=== PATIENT | female | born 1950 | race Caucasian/White ===

== ENCOUNTER 2016-07-22 15:26 | Inpatient (IN) | payer MEDICARE ==
[~2016-07-22] VITALS: Ht 167.6 cm; Wt 50.9 kg
[2016-07-22] MEDS ORDERED: SODIUM CHLORIDE FLUSH 10ML SYR IVF ONE ×2 (16:00→18:30)
[2016-07-22 16:32] LABS: ASPARTATE AMINO TRANSFERASE 19 U/L (15-37); BLOOD UREA NITROGEN 13 mg/dL (7-18)
[2016-07-22 16:59] LABS: DIFF TOTAL CELLS COUNTED 100 CELL DIFF
[2016-07-22 17:03] LABS: VERIFY COUNTS? YES
[2016-07-22] MEDS ORDERED: ONDANSETRON 2MG/ML, 2ML IVPush ONE (17:30)
[2016-07-22] MEDS ORDERED: HYDROmorphone 1 MG/ML, 1ML IVPush PRN (17:30)
[2016-07-22] MEDS ORDERED: SODIUM CHLORIDE 0.9% 1,000ML IVBOLUS ONE (17:30)
[2016-07-22] MEDS ORDERED: NS + 40MEQ KCL 1,000 ML IV ONE ×2 (17:40→18:10)
[2016-07-22] MEDS ORDERED: ONDANSETRON 2MG/ML, 2ML ONE ×2 (17:47→18:54)
[2016-07-22] MEDS ORDERED: HYDROmorphone 1 MG/ML, 1ML ONE (17:48)
[2016-07-22 17:56] LABS: PATH.CAST-FLAG NOT PRESENT; SPERM-FLAG NOT PRESENT; SRC-FLAG NOT PRESENT; XTAL-FLAG NOT PRESENT; YLC-FLAG NOT PRESENT
[2016-07-22] MEDS ORDERED: CEFTRIAXONE PMX 2GM/50ML 50 ML ONE (18:11)
[2016-07-22] MEDS ORDERED: FENTANYL PF 250 MCG/5ML ONE (18:25)
[2016-07-22] MEDS ORDERED: MIDAZOLAM 1 MG/ML, 2ML ONE (18:25)
[2016-07-22] MEDS ORDERED: CEFTRIAXONE PMX 2GM/50ML 50 ML IV ONE (18:30)
[2016-07-22] MEDS ORDERED: ROCURONIUM 10 MG/ML ONE (18:54)
[2016-07-22] MEDS ORDERED: SUCCINYLCHOLINE 20 MG/ML, 10ML ONE (18:54)
[2016-07-22] MEDS ORDERED: DEXAMETHASONE 4 MG/ML, 1ML ONE (18:54)
[2016-07-22] MEDS ORDERED: PROPOFOL 10 MG/ML, 20ML ONE (18:54)
[2016-07-22] MEDS ORDERED: OMNIPAQUE 350 MG/ML, 50 ML BOTTLE IV ONE (19:00)
[2016-07-22] MEDS ORDERED: ACETAMINOPHEN 325 MG TABLET PO PRN ×2 (19:30→23:00)
[2016-07-22] MEDS ORDERED: OXYcodone 5 MG/5 ML ORAL.SOL UDC PO PRN (19:30)
[2016-07-22] MEDS ORDERED: METOCLOPRAMIDE 5 MG/ML, 2ML IV PRN (19:30)
[2016-07-22] MEDS ORDERED: LABETALOL 5MG/ML, 20ML IV PRN (19:30)
[2016-07-22] MEDS ORDERED: hydrALAzine 20 MG/ML, 1ML IV PRN (19:30)
[2016-07-22] MEDS ORDERED: ONDANSETRON 2MG/ML, 2ML IVPush PRN (19:30)
[2016-07-22] MEDS ORDERED: HYDROmorphone 1 MG/ML, 1ML IV PRN (19:30)
[2016-07-22] MEDS ORDERED: OXYcodone 5 MG/5 ML ORAL.SOL UDC ONE (20:15)
[2016-07-22] MEDS ORDERED: ACETAMINOPHEN 650 MG/20.3 ML UDC ONE (20:15)
[2016-07-22] MEDS ORDERED: ACETAMINOPHEN 325 MG TABLET ONE (20:15)
[2016-07-22] MEDS ORDERED: FENTANYL PF 100 MCG/2ML ONE (20:17)
[2016-07-22] MEDS: FENTANYL PF 100 MCG/2ML IV PRN ×2 (20:18→20:44)
[2016-07-22] MEDS ORDERED: BISACODYL 10 MG SUPP PR PRN (23:00)
[2016-07-22] MEDS ORDERED: ONDANSETRON 2MG/ML, 2ML IVP PRN (23:00)
[2016-07-22] MEDS ORDERED: POLYETHYLENE GLYCOL 17 GM PACKET PO PRN (23:00)
[2016-07-22] MEDS: MORPHINE SULFATE 4 MG/ML, 1ML IVPush PRN (23:17)
[2016-07-22] MEDS: KETOROLAC 30 MG/1 ML IVPush PRN (23:17)
[2016-07-23] MEDS ORDERED: MAGNESIUM SULFATE PMX 2GM/50ML 50 ML IV ONE
[2016-07-23] MEDS: NS + 20MEQ KCL 1,000 ML IV SCH ×3 (02:01→23:42)
[2016-07-23 02:34] VITALS: BP 87/67
[2016-07-23 04:58] LABS: ASPARTATE AMINO TRANSFERASE 16 U/L (15-37); BLOOD UREA NITROGEN 11 mg/dL (7-18)
[2016-07-23] MEDS: MORPHINE SULFATE 4 MG/ML, 1ML IVPush PRN (05:18)
[2016-07-23] MEDS: KETOROLAC 30 MG/1 ML IVPush PRN (05:18)
[2016-07-23 05:56] VITALS: BP 103/52
[2016-07-23 07:57] VITALS: BP 111/66
[2016-07-23] MEDS: SENNA/DOCUSATE TABLET PO SCH (09:57)
[2016-07-23] MEDS: FENOFIBRATE 145 MG TABLET PO SCH (12:01)
[2016-07-23] MEDS: OXYcodone IR 5MG TABLET PO PRN ×2 (12:07→22:01)
[2016-07-23 13:59] VITALS: BP 115/70
[2016-07-23] MEDS ORDERED: OXYC5TAB3 PO (14:48)
[2016-07-23] MEDS ORDERED: CEFD300C2 PO (14:48)
[2016-07-23] MEDS ORDERED: POLY17PO5 PO (14:48)
[2016-07-23] MEDS ORDERED: TRAM50TA2 PO (14:48)
[2016-07-23] MEDS ORDERED: CEFTRIAXONE PMX 1GM/50ML 50 ML IV SCH (18:00)
[2016-07-23 19:31] VITALS: BP 104/62
[2016-07-24 01:07] VITALS: BP 120/71
[2016-07-24] MEDS: OXYcodone IR 5MG TABLET PO PRN (04:37)
[2016-07-24 05:37] LABS: BLOOD UREA NITROGEN 9 mg/dL (7-18)
[2016-07-24 05:41] LABS: HEMOGLOBIN 10.9 g/dL (11.7-16.4)
[2016-07-24] MEDS ORDERED: CEFTRIAXONE PMX 1GM/50ML 50 ML IV SCH (06:30)
[2016-07-24] MEDS: SENNA/DOCUSATE TABLET PO SCH (07:09)
[2016-07-24 07:49] VITALS: BP 124/81
[2016-07-24] MEDS: FENOFIBRATE 145 MG TABLET PO SCH (07:57)
== END 2016-07-24 08:59 | disposition home or self-care (01) | DRG 871 ==
LOC: ED 18:05 → EDIP 18:06 → ED 18:45 → 4NOR 21:44
PROVIDERS: ATTEND Internal Medicine
PROC: 0T9B70Z Drainage of Bladder with Drainage Device, Via Natural or Artificial Opening (ICD-10-PCS; 2016-07-22)
PROC: BT1F1ZZ Fluoroscopy of Left Kidney, Ureter and Bladder using Low Osmolar Contrast (ICD-10-PCS; 2016-07-22)
PROC: 0T778DZ Dilation of Left Ureter with Intraluminal Device, Via Natural or Artificial Opening Endoscopic (ICD-10-PCS; principal; 2016-07-22 20:00)
DX: A41.9 Sepsis, unspecified organism (principal); E43 Unspecified severe protein-calorie malnutrition; N10 Acute pyelonephritis; N13.2 Hydronephrosis with renal and ureteral calculous obstruction; E78.5 Hyperlipidemia, unspecified; F17.210 Nicotine dependence, cigarettes, uncomplicated; Z66 Do not resuscitate; D75.89 Other specified diseases of blood and blood-forming organs; E87.6 Hypokalemia; Z87.442 Personal history of urinary calculi; Z90.710 Acquired absence of both cervix and uterus; Z90.89 Acquired absence of other organs; Z80.3 Family history of malignant neoplasm of breast; Z82.49 Family history of ischemic heart disease and other diseases of the circulatory system
CPT/HCPCS: 36415; 74176; 74420; 80048; 80053; 81001; 83605; 83735; 84132; 84145; 85025; 87040; 87086; 93005; 96361; 96374; 96375; J0696; J1100; J1170; J1885; J2250; J2405; J2704; J3010; J3480; Q9967; C1769; C2617; J0330; J3475; J7030